=== PATIENT | female | born 2000 | race Two or more races ===

== ENCOUNTER 2022-07-18 09:48 | Emergency (ER) | payer MEDICAID, OTHER, SELFPAY ==
--- NOTE | ~2022-07-18 | XR_ITS ---
EXAMINATION: XR CHEST CLINICAL INFORMATION: Cough COMPARISON: None TECHNIQUE: Frontal view of the chest was obtained. FINDINGS: No significant abnormality is noted involving the heart, lungs, mediastinum, bony thorax or soft tissues. XR/XR chest 1V IMPRESSION: Unremarkable examination.
[2022-07-18 09:51] VITALS: BP 115/68; PULSE 96; RESP 18; TEMP 37.1; O2SAT 99; BMI 32.8
--- NOTE | 2022-07-18 10:47 | ED.GENADULT ---
HPI - General Adult General Chief complaint: General Medical Stated complaint: flu like symptoms Time Seen by Provider: 07/18/22 10:14 Source: patient Mode of arrival: ambulatory History of Present Illness [facility] narrative: 22-year-old female with no significant past medical history presenting to the ED complaining of myalgias, generalized fatigue, sore throat, cough, and subjective fever since yesterday. Denies ear pain, SOB, CP, abdominal pain, recent travel, sick contacts, pedal edema Onset (ago): day(s) Related Data Previous Rx's Medication Instructions Recorded benzonatate 100 mg capsule 100 mg PO TID PRN cough #14 caps 07/18/22 fluticasone propionate 50 2 spray intranasal DAILY #16 grams 07/18/22 mcg/actuation nasal spray,suspension (Flonase Allergy Relief) Allergies Allergy/AdvReac Type Severity Reaction Status Date / Time No Known Allergies Allergy Verified 07/18/22 10:29 Review of Systems Review of Systems: Constitutional: +Subj Fever, No Chills, +fatigue ENT/Mouth: No Ear Pain, + Nasal Congestion, No Sinus Pain, No Hoarseness, + sore throat, + Rhinorrhea, No Swallowing Difficulty Cardiovascular: No Chest Pain, No SOB Respiratory: + Cough, No Sputum, No Wheezing Gastrointestinal: No Nausea, No Vomiting, No Diarrhea, No Constipation, No Abdominal pain Genitourinary: No Dysuria, No Urinary Frequency, No Hematuria, No Flank Pain Musculoskeletal: No joint pain, + Myalgias, No Joint Swelling Skin: No Skin Lesions, No rash Neuro: No Weakness, No Numbness, No Paresthesias Yes all other systems are reviewed and are negative Constitutional: Constitutional: Reports as per [facility] Past Medical History Attestation statement: The following information was validated with the patient. Social History Social History Advance Directives: No Advance Directives Information Provided: Yes Physical Exam ED Vital Signs: Vital Signs - 24 hr 07/18/22 09:51 Temperature 98.8 F Pulse Rate 96 Respiratory Rate 18 Blood Pressure 115/68 Pulse Oximetry 99 Oxygen Delivery Method Room Air BMI result Body Mass Index 32.8 Const General: cooperative, healthy appearing and no acute distress Orientation/consciousness: patient oriented x3 Limitations: no limitations HENMT Head: Yes normal to inspection and Yes atraumatic Ears: hearing grossly normal bilaterally, external ears normal and TM's normal bilaterally General nose exam: Normal external nose present Face and sinus: Yes normal facial exam Mouth: Normal oral and palatal mucosa present Throat: Yes posterior oropharynx normal, Yes tonsils normal, Yes uvula midline, No peritonsillar mass, No uvula laterally displaced and No uvular edema Eyes General: appearance normal, both eyes and all related structures EOM: EOMs intact bilaterally Neck Neck: Yes normal visual inspection and Yes no meningeal signs Resp Effort & Inspection: normal respiratory effort and no respiratory distress Auscultation: clear to auscultation bilaterally, no crackles, no rales, no rhonchi and no wheezes Cardio Rate: regular rate Heart sounds: S1 normal heart sound present and S2 normal heart sound present GI Inspection: Yes normal to inspection Palpation (GI): Soft to palpation, nontender, no guarding and not rigid Skin Rashes: no rashes Wounds: no wounds Neuro General: patient oriented x3, tone normal and no meningeal signs Gait exam (Neuro): Normal gait present Extrem General: Yes normal to inspection and Yes no pedal edema Course Course Course Narrative: XR chest 1V IMPRESSION: Unremarkable examination. ? -rapid strep negative -1219--COVID-19/influenza/RSV currently pending. Will call patient with positive results only Results discussed with patient including worrisome signs and symptoms and strict return precautions, and when to return to the emergency department. They verbalized understanding and feel safe for discharge at this time. -1358--patient tested positive for COVID-19. Called and spoke with patient made aware of results. Reprinted discharge instructions is no and left at front office help for patient order picker/assembler Medications Administered Discontinued Medications Generic Name Dose Route Start Last Admin Trade Name Freq PRN Reason Stop Dose Admin Acetaminophen/Butalbital/Caffeine 1 tab 07/18/22 10:29 07/18/22 10:59 Butalb/Acetamin/Caff 50/325/40 Tablet PO 07/18/22 10:30 1 tab ONCE ONE Administration Ibuprofen 400 mg 07/18/22 10:29 07/18/22 11:00 Ibuprofen 400 Mg Tablet PO 07/18/22 10:30 400 mg ONCE ONE Administration Medical Decision Making [facility] Narrative Medical decision making narrative: 22-year-old female with no significant past medical history presenting to the ED complaining of myalgias, generalized fatigue, sore throat, cough, and subjective fever since yesterday. On exam vital signs stable, NAD, nontoxic appearing, lungs CTA, or pharynx WNL. Concern for viral illness vs pneumonia. Low suspicion for ACS. No evidence of WELL POINT PUMPING SUPERVISOR or otitis Plan: COVID-19/influenza/RSV testing, rapid strep, CXR Medical Records Medical records reviewed: Yes I reviewed the patient's medical records. Lab Data Lab results reviewed: Yes I reviewed the patient's lab results. Labs: Lab Results 07/18/22 07/18/22 Range/Units 11:59 11:59 Influenza Type A (PCR) NEGATIVE (Negative) Influenza Type B (PCR) NEGATIVE (Negative) RSV RNA Qual (PCR) NEGATIVE (Negative) SARS-CoV-2 RNA (RT-PCR) POSITIVE A (Negative) S. pyogenes GrpA PIPE Negative (Negative) Discharge Plan Discharge Clinical Impression: Acute viral syndrome Patient Disposition: Home, Self-Care Instructions: Viral Syndrome (ED) Additional Instructions: You have COVID At this time you will be okay for discharge. Please self isolate for 5-10 days. Do not expose yourself to others. You may not go to work or school. Please continue to follow cold instructions and wash your hands frequently. You may take Tylenol / Motrin as directed on the bottle for pain or fever. If you have constant or persistent shortness of breath, fever unresolved with medications, chest pain, or your unable to eat or drink please return to the ED CDC Guidelines for home isolation: - Stay away from others - WEAR A MASK if you are sick AND STAY HOME - Cover your mouth and nose with a tissue when you cough or sneeze. Dispose of tissues in a lined trash can and wash your hands immediately with soap and water for at least 20 seconds. If soap and water are not available, clean hands with alcohol-based hand tractor mechanic apprentice that contains at least 60% alcohol. - Clean your hands often with soap and water for at least 20 seconds - Avoid touching your eyes, nose and mouth with unwashed hands - Do not share dishes, drinking glasses, cups, eating utensils, towels, or bedding with other people in your home. After using these items, wash them thoroughly with soap and water or put in the certified appliance service technician. - Clean high-touch surfaces in your isolation area ( sick room and bathroom) every day; let a caregiver clean and disinfect high-touch surfaces in other areas of the home. Clean the area or item with soap and water or another detergent if it is dirty. Then, use a household disinfectant. - Limit contact with pets and animals: If you must care for a pet, wash your hands before and after interacting with them) Your x-rays unremarkable you tested negative for strep throat. Tessalon Perlodalis for cough, take as needed. Flonase is a nasal decongestion. Rest. Stay hydrated. Take Tylenol/ Motrin as needed Please follow-up with her doctor. If symptoms persist or worsen return to the emergency department Prescriptions: New benzonatate 100 mg capsule 100 mg PO TID PRN (Reason: cough) Qty: 14 0RF fluticasone propionate [Flonase Allergy Relief] 50 mcg/actuation spray,suspension 2 spray intranasal DAILY Qty: 16 0RF Rx Instructions: administer into each nostril Referrals: [facility] [Primary Care Provider] - 1 week Stand Alone Forms: Work/School Release Interventions: ED Discharge Assessment Last Done: 07/18/22 12:31 Discharge Date/Time: 07/18/22 12:31
[2022-07-18] MEDS: Butalb/Acetamin/Caff 50/325/40 TABLET 1 TAB PO (10:59)
[2022-07-18] MEDS: Ibuprofen 400 MG TABLET PO (11:00)
[2022-07-18 12:15] LABS: Strep A Nucleic Acid Negative (Negative)
[2022-07-18 12:48] LABS: Influenza A PCR NEGATIVE (Negative); Influenza B PCR NEGATIVE (Negative); Resp Syncy Virus RNA Qual PCR NEGATIVE (Negative); SARS COV2 PCR INHOUSE POSITIVE (Negative)
== END 2022-07-18 12:31 | disposition home or self-care (01) ==
PROVIDERS: Physician Assistant; Emergency Provider Emergency Medicine
DX: B34.9 Viral infection, unspecified (principal); M79.10 Myalgia, unspecified site; R05.9 Cough, unspecified; R50.9 Fever, unspecified; Z20.822 Contact with and (suspected) exposure to COVID-19; Z79.899 Other long term (current) drug therapy
CPT/HCPCS: 0241U; 71045; 87651; 99283

== ENCOUNTER 2022-11-08 13:53 | Emergency (ER) | payer MEDICAID, OTHER, SELFPAY ==
--- NOTE | ~2022-11-08 | XR_ITS ---
EXAMINATION: XR WRIST, RIGHT CLINICAL INFORMATION: Pain in the right wrist. COMPARISON: None TECHNIQUE: Four views of the right wrist. FINDINGS: The bones and soft tissues are normal. No fracture. Alignment is anatomic with normal joint spaces. No erosions or abnormal soft tissue calcifications. XR/XR wrist RT min 3V IMPRESSION: Normal right wrist.
[2022-11-08 14:55] VITALS: BP 133/69; PULSE 91; RESP 20; TEMP 36.7; O2SAT 100; BMI 34.4
--- NOTE | 2022-11-08 14:55 | ED_ITS ---
HPI - General Adult General Chief complaint: Extremity Problem Stated complaint: R hand pain Related Data Previous Rx's Medication Instructions Recorded benzonatate 100 mg capsule 100 mg PO TID PRN cough #14 caps 07/18/22 fluticasone propionate 50 2 spray intranasal DAILY #16 grams 07/18/22 mcg/actuation nasal spray,suspension (Flonase Allergy Relief) Allergies Allergy/AdvReac Type Severity Reaction Status Date / Time No Known Allergies Allergy Verified 07/18/22 10:29 [facility] Social History Social History Advance Directives: No Advance Directives Information Provided: No Physical Exam ED Vital Signs: Vital Signs - 24 hr 11/08/22 14:55 Temperature 98.0 F Pulse Rate 91 Respiratory Rate 20 Blood Pressure 133/69 Pulse Oximetry 100 Oxygen Delivery Method Room Air BMI result Body Mass Index 34.4 Course Course Course Narrative: RME - 22 yo female right hand dominant, with history of recently diagnosed right wrist/hand tendonitis presents to the ER with worsening right wrist pain despite wrist splint and ibuprofen provided by [facility]. She states the ri [facility] wrist pain is worsening, she has swelling of the hand and pain extending to the right forearm. Works as a room service food server. Denies any trauma. Has never had imaging. Plan: X-rays ordered. Discharge Plan Discharge Clinical Impression: Pain in wrist Patient Disposition: Elopement Prescriptions: No Action benzonatate 100 mg capsule 100 mg PO TID PRN (Reason: cough) Qty: 14 0RF fluticasone propionate [Flonase Allergy Relief] 50 mcg/actuation sp ray,suspension 2 spray intranasal DAILY Qty: 16 0RF Rx Instructions: administer into each nostril Interventions: ED Discharge Assessment Last Done: 11/08/22 18:20 Discharge Date/Time: 11/08/22 18:20
== END 2022-11-08 18:20 | disposition left against medical advice (07) ==
PROVIDERS: Emergency Provider Internal Medicine
DX: M25.531 Pain in right wrist (principal)
CPT/HCPCS: 73110; 99282; 99283

== ENCOUNTER 2023-03-16 15:29 | Outpatient (REF) | payer MEDICAID, OTHER, SELFPAY ==
[2023-03-16 16:35] LABS: Estimated Average Glucose 105 mg/dL; Hemoglobin A1c % 5.3 %
[2023-03-16 17:14] LABS: Alanine Aminotransferase 27 U/L (0-31); Albumin Level 4.4 g/dL (3.5-5.0); Alkaline Phosphatase 103 U/L (39-117); Anion Gap 11 (12-20); Aspartate Amino Transferase 25 U/L (5-31); Bilirubin Total 0.7 mg/dL (0.0-1.0); Blood Urea Nitrogen 12 mg/dL (9-16); Calcium 9.8 mg/dL (8.4-10.2); Carbon Dioxide 28 mmol/L (22-29); Chloride 104 mmol/L (96-108); Cholesterol 160 mg/dL; Estimated Glomerular Filt Rate > 60; Glucose Random 112 mg/dL (60-115); HDL Cholesterol 44 mg/dL; LDL Cholesterol Calculated 79 mg/dl; Potassium 3.6 mmol/L (3.3-5.1); Sodium 139 mmol/L (135-145); Total Protein 7.9 g/dL (6.5-8.0); Triglycerides 188 mg/dL
[2023-03-16 17:22] LABS: Thyroid Stimulating Hormone 0.84 uIU/mL (0.32-4.0)
[2023-03-16 18:22] LABS: CT PCR NOT DETECTED (Not Detect.); NG PCR NOT DETECTED (Not Detect.)
[2023-03-18 17:58] LABS: Follicle Stimulating Hormone 3.4 mIU/mL; Lutenizing Hormone 7.6 mIU/mL
[2023-03-19 12:44] LABS: HIV RNA PCR Qn Copies NOT DETECTED copies/mL (NOT DETECTED); HIV RNA PCR Qn Log Copies NOT DETECTED (NOT DETECTED)
== END 2023-03-16 15:30 | disposition home or self-care (01) ==
LOC: HO.HHCL 15:29
PROVIDERS: Visit Provider Nurse Practitioner Family
DX: Z00.00 Encounter for general adult medical examination without abnormal findings (principal); R63.5 Abnormal weight gain; N91.2 Amenorrhea, unspecified; Z20.2 Contact with and (suspected) exposure to infections with a predominantly sexual mode of transmission
CPT/HCPCS: 0353U; 80053; 80061; 83001; 83002; 83036; 84443; 87536

== ENCOUNTER 2024-11-07 15:36 | Outpatient (REF) | payer OTHER, SELFPAY ==
[2024-11-07 17:24] LABS: HCG Quantitative < 2 mIU/mL
--- OUTSIDE RECORDS SUMMARY | 2024-11-07 18:50 | XMS_ITS | Referral Summary ---
Author Organization [facility] Address [address] [place] [address] Care Team Providers Care Marketing Automation Manager Name Role Phone Patient, Has No Pcp Or Ref Primary Care Provider Unavailable Allergies No known active allergies Medications ibuprofen (MOTRIN) 600 mg tablet Take 1 tablet (600 mg total) by mouth every 6 hours as needed for pain (pain). 30 tablet 3 Active clindamycin (CLINDAGEL) 1 % gel Apply topically to the affected area 2 times a day. 60 g 2 3 Active Additional Information Patient not taking.Reported on 10/31/2023 vitamin-iron fum-folic acid 28 mg iron- 800 mcg tablet Take 1 tablet by mouth once a day. 30 tablet 11 3 Active Additional Information Patient not taking.Reported on 10/31/2023 medroxyPROGESTE Partha (PROVERA) 10 mg tablet Take 1 tablet (10 mg total) by mouth once a day. 10 tablet 11 4 Active Active Problems Problem Noted Date Diagnosed Date De Quervain's tenosynovitis, right 11/30/2022 PCOS (polycystic ovarian syndrome) 06/29/2022 Social History Tobacco Use Types Packs/Day Years Used Date Smoking Tobacco: Never Smokeless Tobacco: Never Tobacco Cessation:Counseling Given: Not Answered Alcohol Use Standard Drinks/Week Comments Yes 0 (1 standard drink = 0.6 oz pur e alcohol) sometimes Comments No Sex and Gender Information Value Date Recorded Sex Assigned at Female 10/25/2023 10:07 AM EST Legal Sex Female 2:54 PM EDT Gender Identity Not on file Sexual Orientation Not on file Last Filed Vital Signs Vital Sign Reading Time Taken Comments Blood Pressure 116/72 10/31/2023 9:47 AM EST Pulse - - Temperature - - Respiratory Rate - - Oxygen Saturation - - Inhaled Oxygen Concentration - - Weight 102.1 kg (225 lb) 10/31/2023 9:47 AM EST Height 170.2 cm (5' 7 ) 06/29/2022 3:23 PM EDT Body Mass Index 35.24 06/29/2022 3:23 PM EDT Plan of Treatment Not on file Procedures * Due to [facility] law, this organization might not be sharing negative HIV tests. Procedure Name Priority Date/Time Associated Diagnosis Comments HEPATITIS C ANTIBODY W/REFLEX TO HCV RNA, QUANTITATIVE PCR Routine 06/10/2023 11:45 AM EDT Screening examination for STD (sexually transmitted disease) PAP Routine 06/10/2023 10:48 AM EDT ASCUS with positive high risk HPV cervical from Last 3 Months or Most Recently Relevant to Health Maintenance Results * Due to [facility] law, this organization might not be sharing negative HIV tests. * Hepatitis C Antibody w/Reflex to HCV RNA, Quantitative PCR (06/10/2023 11:45 AM EDT) Hepatitis C Antibody NON-REACT BRAYDEN NON-REACT BRAYDEN 06/11/2023 4:40 AM EDT [email or web address] [facility] Comment: HCV antibody was non-reactive. There is no laboratory evidence of HCV infection. In most cases, no further action is required. However, if recent HCV exposure is suspected, a test for HCV RNA (test code 96946) is suggested. For additional information please refer to http://education.[employer].Consensus Point/faq/WXE73y1 (This link is being provided for informational/ educational purposes only.) Blood Structure of peripheral vein / Unknown Venipuncture / Unknown 06/10/2023 11:45 AM EDT 06/10/2023 12:08 PM EDT [facility] 06/11/2023 4:40 AM EDT [facility] Received Date: us Carmita Sheehan MD LAB BLOOD ORDERABLES Final R esult [facility] [address], [place] [address], [place] [phone] [facility] [address], [place] [address], [place] [phone] from Last 3 Months or Most Recently Relevant to Health Maintenance Insurance HS/FREE CARE [facility] HSNO/FREE CARE Care Teams Marketing Automation Manager Relationship Specialty Start Date End Date Patient, Has No Pcp Or Ref DO NOT EDIT THIS RECORD VIA PROVIDER ON THE FLY PCP - General [employer] 11/17/22
--- OUTSIDE RECORDS SUMMARY | 2024-11-07 18:50 | XMS_ITS | Encounter Summary ---
Author Organization [employer] Address [address] [place] [address] Care Team Providers Care Fish Warden Name Role Phone Eli Concepcion STANLEY Primary Care Provider [phone] Reason for Visit * Reason Onset Date Comments Transfer patient appointment 11/05/2024 Encounter Details Date Type Department Care Team (Late st Contact Info) Description 11/05/2024 Telephone [facility] [address] [place] [address] Michelle Woods MA Transfer patient appointment Social History Tobacco Use Types Packs/Day Years Used Date Smoking Tobacco: Never Smokeless Tobacco: Never Alcohol Use Standard Drinks/Week Comments Yes 2 (1 standard drink = 0.6 oz pur e alcohol) twice weekly Depression Answer Date Recorded Patient Health Questionnaire-9 Score 8 03/16/2023 Housing Stability Answer Date Recorded What is your housing situation today? I have jhonnyelicia diallo 07/11/[address] you li ve. Do you have problems with any of the following? None of the above 07/11/2023 Food Insecurity Answer Date Recorded Within the past 12 months, y ou worried that your food would run out before you got money to buy more: Never True 07/11/2023 Within the past 12 months,th e food you bought just didn't last and you didn't have enough money to get more: Never True 02/2023 Transportation Answer Date Recorded In the past 12 months, has l ack of transportation kept you from medical appts, meetings, work or from getting things needed for daily living? No 07/11/2023 Utilities Answer Date Recorded In the past 12 months, has t he electric, gas, oil or water company threatened to shut off services in your home? No 07/11/2023 Depression Answer Date Recorded Patient Health Questionnaire-2 Score 2 03/16/2023 Comments No Sex and Gender Information Value Date Recorded Sex Assigned at Female 07/05/2022 10:39 AM EDT Legal Sex Female 10:39 AM EDT Gender Identity Female 07/05/2022 10:39 AM EDT Sexual Orientation Don't know 07/05/2022 10 :39 AM EDT documented as of this encounter Miscellaneous Notes * Telephone Encounter - Michelle Woods MA - 11/05/2024 3:32 PM EST T/C placed spoke with pt, pt agreed to come in on 01/23/25 @ 10:00am as a Transfer patient from [email or web address] will be sent. documented in this encounter Plan of Treatment Upcoming Encounters Date Type Department Care Team (Late st Contact Info) Description 01/23/2025 10:00 AM EDT Office Visit [facility] [address] [place] [address] Eli Concepcion NP [address] [place] [address] documented as of this encounter Visit Diagnoses Not on filedocumented in this encounter Additional Health Concerns Assessment Noted Time PHQ-9 Depression Total Score: 8 03/16/20 23 2:26 PM EDT documented as of this encounter Care Teams Fish Warden Relationship Specialty Start Date End Date Eli Concepcion NP [address] [place] [address] PCP - General Family Medicine 04/27/24 documented as of this encounter
--- OUTSIDE RECORDS SUMMARY | 2024-11-07 18:50 | XMS_ITS | Encounter Summary ---
Author Organization [employer] Address [address] [place] [address] Care Team Providers Care Silo Operator Name Role Phone Eli Concepcion NP Primary Care Provider [phone] Reason for Visit * Reason Onset Date Comments Nurse Triage 10/31/2024 Encounter Details Date Type Department Care Team (Late st Contact Info) Description 10/31/2024 Telephone [facility] [address] [place], [place] [phone] Eli Concepcion NP [address] [place], [place] [phone] Nurse Triage Social History Tobacco Use Types Packs/Day Years Used Date Smoking Tobacco: Never Smokeless Tobacco: Never Alcohol Use Standard Drinks/Week Comments Yes 2 (1 standard drink = 0.6 oz pur e alcohol) twice weekly Depression Answer Date Recorded Patient Health Questionnaire-9 Score 8 03/16/2023 Housing Stability Answer Date Recorded What is your housing situation today? I have jhonny diallo 07/11/[address] you [...] t he electric, gas, oil or water [employer] threatened to shut off services in your [...] encounter Miscellaneous Notes * Telephone Encounter - Bell Cintron RN - 10/31/2024 2:35 PM EST No oil change technician needed as this procedure writer speaks Indonesian. Call returned to Amrik Krishnan to triage below. Reports having been dx with PCOS 2 years ago. Reports having pelvic pain. Pt states LMP was 8 months ago. Per pt only had menses for 4 days. Pt has not called [facility] MATE CHIEF to request follow up for this concern. Pt reports Clarifying Plant Operator stopped BC medications. Pt states sent Portal message but has notheard back. Per pt 1 month after initial missed period had negative HPT. Per pt has had urinary urgency. No vaginal discharge. No dark color or cloudy urine. Pt given contact number to [facility] appt with them as patient is due for PAP. Pt advised to seek WIC for possible UA to ruleout any UTI concerns. Uanble to come in tomorrow with CNM at [facility]. Reviewed WIC operating hours and that wait times vary. Reviewed home care advise, ER precautions and reasons to call back. Protocol Used: Menstrual Period - Missed or Late (Adult) Protocol-Based Disposition: See in Office or Video Visit within 2 Weeks Positive Triage Question: * Missed 2 or more periods in a row * All higher-acuity triage questions were negative Care Advice Discussed: * Reasons To Call Back - Miss 2 periods or more - You need help coping with stress - You have any other serious symptoms * Telephone Encounter - Luana Damon - 10/31/2024 2:03 PM EST Symptom: Menstrual Periods Absent or Missed Outcome: Schedule an appointment to be seen within 24 hours Reason: This is the only possible outcome for this symptom The caller accepted this outcome. [phone] documented in this encounter Plan of Treatment Upcoming Encounters Date Type Department Care Team (Late st Contact Info) Description 01/23/2025 10:00 AM EDT Office Visit [facility] [address] [place] [address] Eli Concepcion NP [address] [place] [address] documented as of this encounter Visit Diagnoses Not on filedocumented in this encounter Additional Health Concerns Assessment Noted Time PHQ-9 Depression Total Score: 8 03/16/20 23 2:26 PM EDT documented as of this encounter Care Teams Silo Operator Relationship Specialty Start Date End Date Eli Concepcion NP [address] [place] [address] PCP - General Family Medicine 04/27/24 documented as of this encounter
--- OUTSIDE RECORDS SUMMARY | 2024-11-07 18:50 | XMS_ITS | Clinical Summary ---
Author Organization [facility] Address [address] [place] [address] Care Team Providers Care Liner Installer Name Role Phone Patient, Has No Pcp [...] right 11/30/2022 PCOS (polycystic ovarian syndrome) 06/29/2022 Family History Medical History Relation Name Comments Breast cancer Neg Hx Ovarian cancer Neg Hx Uterine cancer Neg Hx Relation Name Status Comments Other Alive Social History Tobacco Use Types Packs/Day Years [...] 06/29/2022 3:23 PM EDT Plan of Treatment Health Maintenance Due Date Last Done Comments Varicella Vaccines (1 of 2 - 13+ 2-dose series) 2014 HPV Vaccines (1 - 3-dose series) 02/25/2016 Hepatitis B Vaccines (1 of 3 - 19+ 3-dose series) 02/25/2020 COVID-19 Vaccine ( - season) 2024 03/21/2021, 02/19/2021 Influenza Vaccine (#1) 2024 07/06/2022, 2020 Alcohol/Substance Use Screening 09/05/2024 Depression Screening and Follow-Up 09/05/2024 Social Drivers of Health Annual Screening 09/05/2024 Pap Smear 06/10/2026 06/10/2023, 1002/2023, 06/29/2022, Additional history exists DTaP,Tdap,and Td Vaccines (2 - Td or Tdap) 08/11/2031 08/11/2021 RSV Vaccine (60+ years old and patients) (1 - 1-dose 75+ series) 02/25/2076 HIV Screening Completed 06/10/2023, 03/16/2023 Hepatitis C Screening Completed 06/10/2023 Meningococcal Vaccine Aged Out No gemma melecio eligible based on patient's age to complete this topic Pneumococcal Vaccine: Pediatric (0-5 Years) and At-Risk Patients (6-50 Years) Aged Out No longer eligible based on patient's age to complete this topic Procedures * Due to [place] state law, this organization might not be sharing [...] to Health Maintenance Results * Due to [place] state law, this organization might not be sharing negative HIV tests. * Hepatitis C Antibody w/Reflex to HCV RNA, Quantitative PCR (06/10/2023 11:45 AM EDT) Hepatitis C Antibody NON-REACT BRAYDEN NON-REACT BRAYDEN 06/11/2023 4:40 AM EDT [facility] Comment: HCV antibody was non-reactive. There is no laboratory evidence of HCV infection. In most cases, no further action is required. However, if recent HCV exposure is suspected, a test for HCV RNA (test code 25652) is suggested. For additional information please refer to http://education.relocality/faq/OCA81a8 (This link is being provided for informational/ educational purposes only.) Blood Structure of peripheral vein / Unknown Venipuncture / Unknown 06/10/2023 11:45 AM EDT 06/10/2023 12:08 PM EDT Narrative [facility] - 06/11/2023 4:40 AM EDT [facility] Received Date: us Carmita Sheehan MD LAB BLOOD ORDERABLES Final R esult [facility] [place] [address] [facility] 3rd Floor, [place] [address], [place] [phone] [employer] [facility] [address], [place] [address], [place] [phone] from Last 3 Months or Most Recently Relevant to Health Maintenance Insurance [place] CARE [place] Care Teams Liner Installer Relationship Specialty Start Date End Date Patient, Has No Pcp Or Ref DO NOT EDIT THIS RECORD VIA PROVIDER ON THE FLY PCP - General Dope Sprayer 11/17/22
--- OUTSIDE RECORDS SUMMARY | 2024-11-07 18:50 | XMS_ITS | Encounter Summary ---
Author Organization [employer] Address [address] [facility] 7t [place] [address] Care Team Providers Care Level Vial Curvature Gauger Name Role Phone Eli Concepcion NP Primary Care Provider [phone] Reason for Visit * Reason Onset Date Comments Appointment Request 10/31/2024 Encounter Details Date Type Department Care Team ([facility] st Contact Info) Description 10/31/2024 Telephone [facility] [address] [place], [place] [phone] Eli Concepcion NP [address] [place], [place] [phone] Appointment Request Social History Tobacco Use Types Packs/Day Years [...] encounter Miscellaneous Notes * Telephone Encounter - Luana Damon - 10/31/2024 1:57 PM EST Tc from pt requesting a Transfer patient appt. documented in this encounter Plan of Treatment Upcoming Encounters Date Type Department Care Team (Late st Contact Info) Description 01/23/2025 10:00 AM EDT Office Visit [facility] [address] [place] [address] Eli Concepcion NP [address] [place] [address] documented as of this encounter Visit Diagnoses Not on filedocumented in this encounter Additional Health Concerns Assessment Noted Time PHQ-9 Depression Total Score: 8 03/16/20 23 2:26 PM EDT documented as of this encounter Care Teams Level Vial Curvature Gauger Relationship Specialty Start Date End Date Eli Concepcion NP [address] [place] [address] PCP - General Family Medicine 04/27/24 documented as of this encounter
--- OUTSIDE RECORDS SUMMARY | 2024-11-07 18:50 | XMS_ITS | Encounter Summary ---
Author Organization [employer] Address [address] [facility] 7t [place] [address] Care Team Providers Care Underwriter Solicitation Director Name Role Phone Eli Concepcion STANLEY Primary Care Provider [phone] Reason for Visit * Reason Comments Amenorrhea Encounter Details Date Type Department Care Team ([facility] st Contact Info) Description 11/07/2024 3:00 PM EST Office Visit [facility] [address] [place] [address] Secondary amenorrhea (Primary Dx) Social History Tobacco Use Types Packs/Day Years [...] AM EDT documented as of this encounter Last Filed Vital Signs Vital Sign Reading Time Taken Comments Blood Pressure 139/79 11/07/2024 2:19 PM EST Pulse 77 11/07/2024 2:19 PM EST Temperature 36.9 ??C (98.5 ??F) 11/07/2024 2:19 PM ES T Respiratory Rate 17 11/07/2024 2:19 PM EST Oxygen Saturation 98% 11/07/2024 2:19 PM EST Inhaled Oxygen Concentration - - Weight 108 kg (237 lb) 11/07/2024 2:19 PM EST Height - - Body Mass Index 37.12 03/16/2023 2:13 PM EDT documented in this encounter Plan of Treatment Upcoming Encounters Date Type Department Care Team (Late st Contact Info) Description 01/23/2025 10:00 AM EDT Office Visit [facility] [address] [place] [address] Eli Concepcion NP [address] [place] [address] Scheduled Orders Name Type Priority Associated Diagnoses Orde r Schedule Prolactin Lab Routine Secondary amenorrhea Expected: 11/07/2024 (Approximate), Expires: 11/07/2025 [facility] Lab Routine Secondary amenorrhea Expected: 11/07/2024, Expires: 11/07/2025 documented as of this encounter Procedures Procedure Name Priority Date/Time Associated Diagnosis Comments TSH W/REFLEX TO FT4 Routine 11/07/2024 3 :38 PM EST Secondary amenorrhea HCG, TOTAL, QN Routine 11/07/2024 3:38 PM EST Secondary amenorrhea documented in this encounter Results * hCG, Total, Quantitative (11/07/2024 3:38 PM EST) HCG Quantitative <2 mIU/mL [facility] Comment:Weeks post LMP Appro ximate hCG(Last Menstrual Period) Range (mIU/ml)3 - 4 weeks 9 - 1304 - 5 weeks 75 - 2,6005 - 6 weeks 850 - 20,8006 - 7 weeks 4000 - 100,2007 - 12 weeks 11,500 - 289,33240 - 16 weeks 18,300 - 137,33502 - 29 weeks (2nd trimester) 1,400 - 53,86051 - 41 weeks (3rd trimester) 940 - 60,000The [place] B- hCG assay is used for the early detection ofpregnancy; it cannot be used to diagnose any conditionunrelated to . If a B-hCG level is not supportedby the clinical evidence, results should be confirmed by analternative method (qualitative urine hCG, for example). Blood Venous blood specimen / Unknown 11/07/2024 3:38 PM EST 11/07/2024 4:09 PM EST us Mike Romero MD LAB BLOOD ORDERABLES Final Resul t Performing Organization Address [facility] Co de Phone Number [facility] [address] [place] [phone] * TSH with Reflex to Free T4 (11/07/2024 3:38 PM EST) TSH reflex Free T4 1.00 0.32 - 4.0 uIU/mL [facility] Blood Venous blood specimen / Unknown 11/07/2024 3:38 PM EST 11/07/2024 4:09 PM EST us Mike Romero MD LAB BLOOD ORDERABLES Final Resul t Performing Organization Address City/[facility] Co de Phone Number [facility] [address] [place] [phone] documented in this encounter Visit Diagnoses Diagnosis Secondary amenorrhea- Primary Absence of menstruation documented in this encounter Additional Health Concerns Assessment Noted Time PHQ-9 Depression Total Score: 8 03/16/20 23 2:26 PM EDT documented as of this encounter Care Teams Underwriter Solicitation Director Relationship Specialty Start Date End Date Appram, Eli, CARTON COUNTER FEEDER [address] [place] [address] PCP - General Family Medicine 04/27/24 documented as of this encounter
--- OUTSIDE RECORDS SUMMARY | 2024-11-07 18:50 | XMS_ITS | Clinical Summary ---
Author Organization [employer] Address [address] [facility] 7t [place] [address] Care Team Providers Care Wireless Development Manager Name Role Phone Sierrazo Eli STANLEY Primary Care Provider [phone] No known active allergies Medications norethindrone- ethinyl estradiol (09/24) 1-20 MG-MCG tablet take 1 tablet by oral route every day 11/02/19 22 Active Juleber 0.15-30 MG-MCG tablet Take 1 tablet by mouth in the morning. 08/24/20 22 Active acetaminophen (Tylenol) 500 MG tablet Take 1 tablet (500 mg) by mouth every 6 (six) hours if needed for moderate pain or headaches. 30 tablet 11/08/19 25 Active ibuprofen 400 MG tablet Take 1 tablet (400 mg) by mouth every 6 (six) hours if needed for moderate pain or fever for up to 30 doses. 30 tablet 11/08/19 25 Active acetaminophen (Tylenol) 500 MG tablet Take 500 mg by mouth every 6 (six) hours if needed. 025 Discontinued(Re order (will not trigger notification to Pharmacy)) Active Problems Problem Noted Date Diagnosed Date De Quervain's tenosynovitis, right 10/21/2022 Assessment & Plan (11/11/2022 9:02 AM EST): No improvement with splint, ibuprophen, and rest. Referral to hand surgery. Discontinue ibuprophen and start naproxan Assessment & Plan (10/21/2022 2:55 PM EST): Wrist splint given. Ibuprofen and rest. F/u with tele-visit. Consider referral if no improvement. PCOS (polycystic ovarian syndrome) 06/29/2022 Encounters Date Type Department Care Team Description 11/07/2024 3:00 PM EST Office Visit [facility] [address] [place] [phone] Secondary amenorrhea (Primary Dx) 11/05/2024 Telephone [facility] [address] [place] [phone] Michelle Woods [place] Transfer patient appointment 10/31/[address] [phone] Eli Concepcion NP Nurse Triage 10/31/[address] [address] Eli Concepcion NP Appointment Request from Last 3 Months Immunizations Name Administration Dates Next Due Influenza injectable quadrivalent preservative f ree 07/06/2022,08/11/2021 Moderna Covid-19 Vaccine 12+ 03/21/2021,02/20/20 21 Tdap 08/11/2021 Family History Medical History Relation Name Comments Diabetes type II Paternal Grandmother Relation Name Status Comments Paternal Grandmother Social History Tobacco Use Types Packs/Day Years Used Date Smoking Tobacco: Never Smokeless Tobacco: Never Tobacco Cessation:Counseling Given: Not Answered Alcohol Use Standard Drinks/Week Comments Yes 2 [...] Don't know 07/05/2022 10 :39 AM EDT Last Filed Vital Signs Vital Sign Reading Time Taken Comments Blood Pressure 139/79 11/07/2024 2:19 PM EST Pulse 77 11/07/2024 2:19 PM EST Temperature 36.9 ??C (98.5 ??F) 11/07/2024 2:19 PM ES T Respiratory Rate 17 11/07/2024 2:19 PM EST Oxygen Saturation 98% 11/07/2024 2:19 PM EST Inhaled Oxygen Concentration - - Weight 108 kg (237 lb) 11/07/2024 2:19 PM EST Height 170.2 cm (5' 7 ) 03/16/2023 2:13 PM EDT Body Mass Index 37.12 03/16/2023 2:13 PM EDT Plan of Treatment Upcoming Encounters Date Type Department Care Team (Late st Contact Info) Description 01/23/2025 10:00 AM EDT Office Visit [facility] [address] [place] [address] Eli Concepcion NP [address] [place] [address] Health Maintenance Due Date Last Done Comments Alcohol/Substance Use Screening 2013 Family Planning (PISQ) 02/25/2016 HPV Vaccines (1 - 3-dose series) 02/25/2016 Hepatitis B Vaccines (1 of 3 - 19+ 3-dose series) 02/25/2020 Pap Smear 2022 Chlamydia and Gonorrhea Screening 03/16/2024 03/16/2023 Depression Screening 03/16/2024 03/16/2023, 03/16/2023 SDOH Screening 03/16/2024 03/16/2023 COVID-19 Vaccine (3 - 2023-2 5 season) 2024 03/21/2021, 02/19/2021 Influenza Vaccine (#1) 2024 2, 08/11/2021 Tobacco Screening 11/07/2025 11/07/2024 DTaP/Tdap/Td Vaccines (2 - T d or Tdap) 08/11/2031 08/11/2021 Zoster Vaccines (1 of 2) 2051 RSV Patients and Patients Aged 60 years or older (1 - 1-dose 75+ series) 02/25/2076 Hepatitis C Screening Completed 07/06/2022 HIV Screening Completed 03/16/2023, 07/06/2022 HIB Vaccines Aged Out No longer eligi ble based on patient's age to complete this topic Hepatitis A Vaccines Aged Out No long er eligible based on patient's age to complete this topic IPV Vaccines Aged Out No longer eligi ble based on patient's age to complete this topic Meningococcal Vaccine Aged Out No gemma melecio eligible based on patient's age to complete this topic Pneumococcal Vaccine: Pediatrics (0 to 5 Years) and At-Risk Patients (6 to 49) Years) Aged Out No longer eligible b ased on patient's age to complete this topic RSV under 20 months Aged Out No longe r eligible based on patient's age to complete this topic Rotavirus Vaccines Aged Out No longer eligible based on patient's age to complete this topic Procedures Procedure Name Priority Date/Time Associated Diagnosis Comments HCG, TOTAL, QN Routine 11/07/2024 3:38 PM EST Secondary amenorrhea TSH W/REFLEX TO FT4 Routine 11/07/2024 3 :38 PM EST Secondary amenorrhea HIV 1 RNA, QUANTITATIVE REAL TIME PCR Routine 03/16/2023 3:36 PM EDT CHLAMYDIA/N. GONORRHOEAE RNA, TMA, UROGENITAL Routine 03/16/2023 3:35 PM EDT [facility]ZZ HISTORICAL HEPATITIS C AB W/REFL TO HCV RNA, QN, PCR Routine 07/06/2022 10:43 AM EDT from Last 3 Months or Most Recently Relevant to Health Maintenance Results * TSH with Reflex to Free T4 (11/07/2024 3:38 PM EST) TSH reflex Free T4 1.00 0.32 - 4.0 uIU/mL [facility] Blood Venous blood specimen / Unknown 11/07/2024 3:38 PM EST 11/07/2024 4:09 PM EST us Miek Romero MD LAB BLOOD ORDERABLES Final Resul t Performing Organization Address [facility] Co de Phone Number [facility] [address] [place] [phone] * hCG, Total, Quantitative (11/07/2024 3:38 PM EST) HCG Quantitative <2 mIU/mL [facility] Comment:Weeks post LMP Appro ximate hCG(Last Menstrual Period) Range (mIU/ml)3 - 4 weeks 9 - 1304 - 5 weeks 75 - 2,6005 - 6 weeks 850 - 20,8006 - 7 weeks 4000 - 100,2007 - 12 weeks 11,500 - 289,81261 - 16 weeks 18,300 - 137,18022 - 29 weeks (2nd trimester) 1,400 - 53,91288 - 41 weeks (3rd trimester) 940 - [...] ORDERABLES Final Resul t Performing Organization Address City/[facility]/ZIP Co de Phone Number [facility] [address] [place] [phone] * HIV-1 RNA, Quantitative, Real-Time PCR (03/16/2023 3:36 PM EDT) Pathologist [facility] HIV RNA PCR Qn Copies NOT DETECTED NOT DETECTED copies/mL [facility] HIV RNA PCR Qn Log Copies NOT DETECTED NOT DETECTED [facility] Comment:Result Units: Log co pies/mLThis test was performed using Real-Time Polymerase ChainReaction.Reportable Range: 20 copies/mL to 10,000,000 copies/mL(1.30 log copies/mL to 7.00 log copies/mL).THIS TEST WAS PERFORMED AT:[facility] [place] [phone] MOHAN MD 03/16/2023 3:36 PM EDT 03/16/2023 4:02 PM EDT [facility] External Provider LAB BLO OD ORDERABLES Final Result [facility] [address] [place] [address] [phone] * Chlamydia/N. Gonorrhoeae RNA, TMA, Urogenitial (03/16/2023 3:35 PM EDT) [facility] CT PCR NOT DETECTED Not Detect. [facility] Comment:A not detected test result does not exclude the possibilityof infection because test results can be affected byimproper specimen collection, concurrent antibiotic therapy,or the number of organisms in the specimen which may bebelow the sensitivity of the test. As with many diagnostictests, results from the Xpert CT/NG assay should beinterpreted in conjunction with other laboratory andclinical data available to the clinician.Xpert CT/NG performance has not been evaluated in patientsless than 14 years of age. The assay should not be used forthe evaluationof suspected sexual abuse or for other medico-legalindications. Additional testing is recommended in anycircumstance when false positive or false negative resultscould lead to adverse medical, social or psychologicalconsequences. NG PCR NOT DETECTED Not Detect. [facility] Comment:A not detected test result does not exclude the possibilityof infection because test results can be affected byimproper specimen collection, concurrent antibiotic therapy,or the number of organisms in the specimen which may bebelow the sensitivity of the test. As with many diagnostictests, results from the Xpert CT/NG assay should beinterpreted in conjunction with other laboratory andclinical data available to the clinician.Xpert CT/NG performance has not been evaluated in patientsless than 14 years of age. The assay should not be used forthe evaluationof suspected sexual abuse or for other medico-legalindications. Additional testing is recommended in anycircumstance when false positive or false negative resultscould lead to adverse medical, social or psychologicalconsequences. 03/16/2023 3:35 PM EDT 03/16/2023 4:05 PM EDT Narrative [facility] - 03/16/2023 6:22 PM EDT [facility] Exter nal Provider LAB MICROBIOLOGY - GENERAL ORDERABLES Final Result [facility] [address] [place] [phone] * HEPATITIS C AB W/REFL TO HCV RNA, QN, PCR (07/06/2022 10:43 AM EDT) HEPATITIS C ANTIBODY NON-REACTI VE NON-REACT BRAYDEN [facility] INDEX 0.07 <1.00 [facility] Comment: ?? HCV antibody was non-reactive. There is no laboratory ?? evidence of HCV infection. ?? In most cases, no further action is required. However, if recent HCV exposure is suspected, a test for HCV RNA (test code 68661) is suggested. ?? For additional information please refer to http://education.Agari.[employer]/faq/IPZ42h1 (This link is being provided for informational/ educational purposes only.) ?? 07/06/2022 10:4 3 AM EDT Petar Mckeon MD HISTORICAL/NON ORDERABLE LAB S Final Result [facility] from Last 3 Months or Most Recently Relevant to Health Maintenance Insurance [facility] HS FULL Care Teams Wireless Development Manager Relationship Specialty Start Date End Date Eli Concepcion NP [address] [place] [phone] PCP - General Family Medicine 04/27/24
[2024-11-08 17:08] LABS: Follicle Stimulating Hormone 3.2 mIU/mL; Prolactin 6.2 ng/mL
== END 2024-11-07 15:37 | disposition home or self-care (01) ==
LOC: HO.HHCL 15:36
PROVIDERS: Visit Provider Emergency Medicine
DX: N91.1 Secondary amenorrhea (principal)
CPT/HCPCS: 36415; 83001; 84146; 84443; 84702

== ENCOUNTER 2024-11-20 | Outpatient (REF) | payer OTHER, SELFPAY ==
[2024-11-24 18:19] LABS: C. trachomatis RNA TMA NOT DETECTED (NOT DETECTED); N. gonorrhoeae RNA TMA NOT DETECTED (NOT DETECTED)
[2024-11-29 10:47] LABS: Trichomonas (NAAT) NOT DETECTED
--- OUTSIDE RECORDS SUMMARY | 2025-02-28 13:43 | XMS_ITS | Referral Summary ---
Author Organization [facility] Address [address] [place] [address] Care Team Providers Care Dental Surgeon Name Role Phone Patient, Has No Pcp [...] Not on file Procedures * Due to [place] [employer] law, this organization might not be sharing [...] to Health Maintenance Results * Due to [place] [employer] law, this organization might not be sharing negative HIV tests. * Hepatitis C Antibody w/Reflex to HCV RNA, Quantitative PCR (06/10/2023 11:45 AM EDT) Hepatitis C Antibody NON-REACT BRAYDEN NON-REACT BRAYDEN 06/11/2023 4:40 AM EDT [facility] Comment: HCV antibody was non-reactive. There is no laboratory evidence of HCV infection. In most cases, no further action is required. However, if recent HCV exposure is suspected, a test for HCV RNA (test code 93056) is suggested. For additional information please refer to http://education.MarginLeft.[employer]/faq/DES07k1 (This link is being provided for informational/ educational purposes only.) Blood Structure of peripheral vein / Unknown Venipuncture / Unknown 06/10/2023 11:45 AM EDT 06/10/2023 12:08 PM EDT [facility] 06/11/2023 4:40 AM EDT [facility] Received Date: us Carmita Sheehan MD LAB BLOOD ORDERABLES Final R esult [facility] [address] [facility] 3rd Floor, [place] [address], [place] [phone] [facility] [address], [place] [address], [place] [phone] * Pap (06/10/2023 10:48 AM EDT) Specimen Adequacy Satisfactory for evaluation [facility] 3 11:54 AM EDT [facility] ANATOMIC PATHOLOGY LABORATORY Pathologist Cytology Interpretation High grade squamous intraepithelial lesion. [facility] 3 11:54 AM EDT [facility] ANATOMIC PATHOLOGY LABORATORY at 1154 EDT Steam Brush Operator Statement This Pap test was examined by the [facility], [place], [place], [place]. This Pap test was examined in accordance with the [facility] Cytopathology Laboratory written policy, which incorporates all CLIA mandates. Current screening guidelines can be found in [place]: A Cancer Journal for Clinicians 2020;70:321-346. Current ASCCP management guidelines for abnormal Pap tests are published in the Journal Lower Genital Tract Disease Volume 2020;24:102-131. [facility] 3 11:54 AM EDT Certain ANATOMIC PATHOLOGY LABORATORY Clinical History Hx ASCUS [id number]+ [place] MANUAL 3 11:54 AM EDT [facility] Resulting Agency Case was signed out at [facility], Department of Pathology, [facility] CLIA [id number] [facility] MANUAL 3 11:54 AM EDT Certain ANATOMIC PATHOLOGY LABORATORY Report Header Gynecologic Cytology Report Case: [id number] Authorizing Provider: Carmita Sheehan MD Collected: 06/10/2023 1048 Ordering Location: [facility] Received: 06/10/2023 1248 [facility] Obstetrics and Gynecology First Screen: Alireza Willis Pathologist: Ja Hardy MD Specimen: Screening ThinPrep Pap, Cervix/Endocervix 11:54 AM EDT [facility] [employer] [facility]OLOG[facility] LABOR[facility] Brushing Cervix uteri structure / Unknown Non-Blood Collection / Unknown 06/10/2023 10:48 AM EDT 06/10/2023 12:48 PM EDT us Carmita Sheehan MD LAB PATHOLOGY/CYTOLOGY ORDER ISIAH Final Result [facility] [address] [place] [phone], from Last 3 Months or Most Recently Relevant to Health Maintenance Insurance HS/FREE CARE [facility] [place] HSNO/FREE CARE Care Teams Dental Surgeon Relationship Specialty Start Date End Date Patient, Has No Pcp Or Ref DO NOT EDIT THIS RECORD VIA PROVIDER ON THE FLY PCP - General Animal Attendants And Trainers 11/17/22
== END 2024-11-20 00:01 | disposition home or self-care (01) ==
LOC: HO.LNP
PROVIDERS: Visit Provider Advanced Practice Midwife
DX: R87.613 High grade squamous intraepithelial lesion on cytologic smear of cervix (HGSIL) (principal); Z11.3 Encounter for screening for infections with a predominantly sexual mode of transmission
CPT/HCPCS: 87491; 87591; 87661; 88175